=== PATIENT | female | born 1980 | race African-American/Black ===

== ENCOUNTER → 2017-01-08 | Outpatient (CLI) | payer BC ==
--- NOTE | ~2017-01-08 | NM22 ---
[facility] A Service of [facility] RADIOLOGY TEXT RESULTS PATIENT: CHALINO LEONG LOCATION: [facility] : 76 UNIT #: [id number] AGE: [address]: Joseluis Kan MD SEX: F ORDER DR: [id number] [facility] [address] [place], [place] [address] [id number] O MR#: [id number] Acc #: [id number] NAME: CHALINO LEONG : 1980 SEX: F STUDY DATE/TIME: 01/08/2017 8:17 UNIT: [facility] ROOM: STUDY DESCRIPTION: NM Hepatobiliary W GB Pharm Attending Physician: Joseluis Kan M.D. Referring Physician: Joseluis Kan M.D. Ordering Physician: Joseluis Kan M.D. Primary Care Physician: Jasbir Gibson D.O. MEDICAL IMAGING REPORT This report is preliminary unless electronic signature is present EXAM Radionuclide biliary scan, 01/08/2017 HISTORY Chest pain and pressure. Abnormal EKG. No changes in appetite. No other symptoms. Duration over 1 month. FINDINGS Following intravenous administration 5.44 mCi technetium 99m Choletec, static images of the abdomen obtained at 15-minute intervals over 60 minutes. Patient then received 30-minute infusion of 1.5 mcg Kinevac. Images obtained before and after Kinevac infusion. Region of interest drawn around gallbladder. Gallbladder ejection fraction calculated. Homogeneous distribution of radiotracer throughout the liver at 15 minutes post administration with radiotracer seen in common bile duct and small bowel 15 minutes post administration. The gallbladder is faintly visualized at 30 minutes post tracer administration. During initial hour of examination radiotracer accumulates in the gallbladder and small bowel. There is no evidence of cystic duct obstruction or acute cholecystitis. Kinevac stimulated gallbladder ejection fraction is 96.5%. Normal greater than or equal to 30%. Dictated by... Sushil Fonseca M.D. THIS IS AN ELECTRONICALLY VERIFIED REPORT Sushil Fonseca M.D. at 01/08/2017 8:00 PM MADHURI/nabeel TD: 01/08/2017 15:13 JOB #: [id number] [facility] A Service of [facility] RADIOLOGY TEXT RESULTS PATIENT: CHALINO LEONG LOCATION: [facility] #: [id number] : 76 UNIT #: [id number] AGE: [address]: Joseluis Kan MD SEX: F ORDER DR: MEDICAL IMAGING REPORT Page 1 of 1 COPY
== END | disposition home or self-care (01) ==
LOC: CNUC 07:44
DX: R07.89 Other chest pain (principal); Z88.2 Allergy status to sulfonamides; Z88.5 Allergy status to narcotic agent
CPT/HCPCS: 78227; A9537; J2805